=== PATIENT | female | born 1985 | race Caucasian/White ===

== ENCOUNTER → 2024-07-12 | Outpatient (CLI) | payer BC ==
[2024-07-12 10:20] VITALS: BP 143/93; PULSE 114; RESP 16; TEMP 98.2; BMI 49.3
--- NOTE | 2024-07-12 13:30 | P.HPBAR ---
Bariatric H&P - History & Physicial H&P Date: 07/12/24 History & Physicial: Visit/CC: new Patient initial contact: Initial weight: Initial weight in pounds: Height: 5 ft 4.5 in Initial BMI: Last weight: Current weight: 132.449 kg Current weight in pounds: 292.00 Current BMI: 49.3 [place] body weight (based on NIH guidelines): 60.328 kg Excess body weight loss: The patient is a 38 year-old F who presents for Bariatric Assessment. This is a 38-year-old female whose BMI is 50. Patient presents today for bariatric consultation. Patient had been previously scheduled at another center for gastric sleeve surgery. Patient request to have gastric sleeve surgery with myself. Patient has a known history of gallstones. She had ultrasound which shows a 3 cm gallstone. Past Medical History Past Medical History: Hypertension, Skin Disorder Additional Past Medical History / Comment(s): psoriasis and pcos History of Any Multi-Drug Resistant Organisms: None Reported Past Surgical History: No Surgical Hx Reported Past Anesthesia/Blood Transfusion Reactions: No Reported Reaction Smoking Status: Never smoker - Past Family History Father Family Medical History: Coronary Artery Disease (CAD), Hypertension Surgical - Exam Vital Signs Temp Pulse Resp BP 98.2 F 114 H 16 143/93 07/12/24 10:15 07/12/24 10:15 07/12/24 10:15 07/12/24 10:15 - General well developed, well nourished, no distress - Eyes PERRL - ENT normal pinna - Neck no masses - Respiratory normal expansion - Abdomen Abdomen: soft, non tender Bariatric Assessment & Plan Plan: Cholelithiasis. Patient will be scheduled for laparoscopic ostectomy. Morbid obesity, BMI 50. Patient be scheduled for EGD. Bariatric Checklist Checklist: Plan: Checklist: EGD: 1. Hiatal hernia: 2. H. Pylori: HgbA1c: Vitamin D: Smoking: Primary care physician referral: real Psychiatry clearance: Cardiology clearance: Sleep study: Diet journal: VTE risk score: VTE risk level: Rehab needs at discharge:
== END ==
LOC: BARWHC3 09:50 → EDSEX 09:50
PROVIDERS: ATTEND Surgery
CPT/HCPCS: 99202

== ENCOUNTER 2024-07-15 09:03 | Day surgery (SDC) | payer BC ==
[2024-07-15] MEDS: IV FLUID CONTINUATION 1,000 ML IV ONE (09:11)
[2024-07-15] MEDS: LACTATED RINGERS 1,000 ML IV SCH (09:14)
[2024-07-15 09:24] VITALS: TEMP 97.3
[2024-07-15] MEDS ORDERED: LIDOCAINE 1% INJ 10MG/ML (20 ML MDV) ONE (10:25)
[2024-07-15] MEDS ORDERED: PROPOFOL 10 MG/ML 20 ML VIAL IV ONE (10:25)
--- NOTE | 2024-07-15 10:27 | P.GSHP ---
History of Present Illness H&P Date: 07/15/24 Chief Complaint: GERD, morbid obesity this a 38-year-old female presents today for EGD. Patient is underwent workup for sleeve gastrectomy. She is evidence of GERD. Her BMI is 51. Past Medical History Past Medical History: Hypertension, Skin Disorder Additional Past Medical History / Comment(s): psoriasis ( HANDS AND KNEE AREA). and pcos History of Any Multi-Drug Resistant Organisms: None Reported Past Surgical History: No Surgical Hx Reported Past Anesthesia/Blood Transfusion Reactions: No Reported Reaction Additional Past Anesthesia/Blood Transfusion Reaction / Comment(s): NEVER ANESTHESIA Smoking Status: Never smoker - Past Family History Father Family Medical History: Coronary Artery Disease (CAD), Hypertension Medications and Allergies Home Medications Medication Instructions Recorded Confirmed Type ALPRAZolam [Xanax] 1 mg PO BID PRN 07/12/24 07/15/24 History Tirzepatide [Mounjaro] 15 mg SQ WE 07/12/24 07/15/24 History lisinopriL [Zestril] 20 mg PO HS 07/12/24 07/15/24 History Allergies Allergy/AdvReac Type Severity Reaction Status Date / Time No Known Allergies Allergy Verified 07/15/24 09:20 Surgical - Exam Vital Signs Temp Pulse Resp BP Pulse Ox 97.3 F L 96 20 127/88 98 07/15/24 09:22 07/15/24 09:22 07/15/24 09:22 07/15/24 09:22 07/15/24 09:22 - General well developed, well nourished, no distress - Eyes PERRL - ENT normal pinna - Neck no masses - Respiratory normal expansion - Cardiovascular Rhythm: regular - Abdomen Abdomen: soft, non tender Assessment and Plan Assessment: GERD, morbid obesity. We'll performEGD.
--- NOTE | 2024-07-15 10:38 | P.OP ---
Date of Procedure: 07/15/24 Preoperative Diagnosis: GERD Morbid obesity Postoperative Diagnosis: antral gastritis Procedure(s) Performed: EGD Anesthesia: MAC Surgeon: Sammy Mcneal Pathology: other (antrum) Condition: stable Disposition: PACU Description of Procedure: the patient's placed on the endoscopy table in the lateral position. She received IV sedation. The gastro-/oropharynx passed in the esophagus and stomach. Scope was placed through the pylorus. The first and second portion of the duodenum appeared normal. Scope was brought back the antrum this. Mildly inflamed. A biopsies was performed. Scope was unretroflexed and remainder of the stomach appeared normal. The GE junction was at 40 cm the distal esophagus appeared normal. The proximal esophagus. Normal. Scope withdrawn for patient.
[2024-07-15 11:02] VITALS: BP 127/76; PULSE 87; RESP 18
== END 2024-07-15 11:40 | disposition home or self-care (01) ==
LOC: ORWHC2ENDO 09:03
PROVIDERS: ATTEND Surgery
DX: K29.50 Unspecified chronic gastritis without bleeding (principal); K21.9 Gastro-esophageal reflux disease without esophagitis; E66.01 Morbid (severe) obesity due to excess calories; I10 Essential (primary) hypertension; Z68.43 Body mass index [BMI] 50.0-59.9, adult; Z79.899 Other long term (current) drug therapy
CPT/HCPCS: 43239; 81025; 88305

== ENCOUNTER 2024-07-19 07:22 | Day surgery (SDC) | payer BC ==
[2024-07-19 07:54] VITALS: TEMP 97.6
[2024-07-19 08:08] LABS: Glucose,Whole Blood 106 mg/dL (70-110)
[2024-07-19] MEDS: LACTATED RINGERS 1,000 ML IV SCH (08:13)
[2024-07-19] MEDS: DEXAMETHASONE SOD PHOSPHATE 4 MG/ML 1 ML VIAL IV ONE (08:13)
[2024-07-19] MEDS: IV FLUID CONTINUATION 1,000 ML IV ONE ×2 (08:14→10:06)
[2024-07-19] MEDS: ONDANSETRON 4 MG/2 ML VIAL IVP ONE (08:14)
--- NOTE | 2024-07-19 08:24 | P.GSHP ---
History of Present Illness H&P Date: 07/19/24 Chief Complaint: Right upper quadrant pain, cholelithiasis There is a 38-year-old female who presents today for laparoscopic cholecystectomy. Patient has had complaints reported pain. Her recent ultrasound shows evidence of cholelithiasis. Patient is more obese BMI 51. Past Medical History Past Medical History: Hypertension, Skin Disorder Additional Past Medical History / Comment(s): psoriasis ( HANDS AND KNEE AREA). and pcos History of Any Multi-Drug Resistant Organisms: None Reported Past Surgical History: No Surgical Hx Reported Past Anesthesia/Blood Transfusion Reactions: No Reported Reaction Additional Past Anesthesia/Blood Transfusion Reaction / Comment(s): NEVER ANESTHESIA Smoking Status: Never smoker - Past Family History Father Family Medical History: Coronary Artery Disease (CAD), Hypertension Medications and Allergies Home Medications Medication Instructions Recorded Confirmed Type ALPRAZolam [Xanax] 1 mg PO BID PRN 07/12/24 07/15/24 History Tirzepatide [Mounjaro] 15 mg SQ WE 07/12/24 07/15/24 History lisinopriL [Zestril] 20 mg PO HS 07/12/24 07/15/24 History Allergies Allergy/AdvReac Type Severity Reaction Status Date / Time No Known Allergies Allergy Verified 07/15/24 09:20 Surgical - Exam Vital Signs Temp Pulse Resp BP Pulse Ox 97.6 F 105 H 18 123/71 100 07/19/24 07:53 07/19/24 07:53 07/19/24 07:53 07/19/24 07:53 07/19/24 07:53 - General well developed, well nourished, no distress - Eyes PERRL - ENT normal pinna - Neck no masses - Respiratory normal expansion - Cardiovascular Rhythm: regular - Abdomen Abdomen: soft, non tender Assessment and Plan Assessment: Cholelithiasis Morbid obesity Will perform laparoscopic cholecystectomy.
[2024-07-19] MEDS: HEPARIN SODIUM,PORCINE 5,000 UNIT/ML 1 ML VIAL SQ STA (08:38)
[2024-07-19] MEDS ORDERED: PROPOFOL 10 MG/ML 20 ML VIAL IV ONE (08:51)
[2024-07-19] MEDS ORDERED: MIDAZOLAM 2 MG/2 ML VIAL ONE (08:51)
[2024-07-19] MEDS ORDERED: HYDROmorphone (PF) 1 MG/ML ONE (08:51)
[2024-07-19] MEDS ORDERED: ROCURONIUM 10 MG/ML (5 ML VIAL) IV ONE (08:51)
[2024-07-19] MEDS ORDERED: SUCCINYLCHOLINE CHLORIDE 200 MG/10 ML VIAL IV ONE (08:51)
[2024-07-19] MEDS ORDERED: PHENYLEPHRINE 10 MG/ML VIAL ONE (08:51)
[2024-07-19] MEDS ORDERED: NEOSTIGMINE 1 MG/ML 10 ML VIAL ONE (08:51)
[2024-07-19] MEDS ORDERED: fentaNYL (PF) 50 MCG/ML 2 ML AMP ONE (08:51)
[2024-07-19] MEDS ORDERED: LIDOCAINE 1% INJ 10MG/ML (20 ML MDV) ONE (08:51)
[2024-07-19] MEDS: ceFAZolin 3 GM in SODIUM CHLORIDE 0.9% 100 ML IVPB PRN (08:51)
[2024-07-19] MEDS ORDERED: GLYCOPYRROLATE 0.2 MG/ML 2 ML VIAL ONE (08:51)
[2024-07-19] MEDS: LIDOCAINE 1%-EPI 1:100,000 20 ML VIAL SQ ONE (09:23)
--- NOTE | 2024-07-19 09:50 | P.OP ---
Date of Procedure: 07/19/24 Preoperative Diagnosis: Cholelithiasis Postoperative Diagnosis: Cholelithiasis Procedure(s) Performed: Laparoscopic cholecystectomy Anesthesia: FORREST Surgeon: Sammy Mcneal Estimated Blood Loss (ml): 5 Pathology: other (Gallbladder) Condition: stable Disposition: PACU Description of Procedure: The patient was placed on the operating table. The patient received a general endotracheal tube anesthesia. The patients abdomen was prepped and draped in the usual sterile fashion. Through an infraumbilical stab incision, the fascia of the anterior abdominal wall was grasped with a pair of Kochers and then the Veress needle was placed in the peritoneal cavity. Position of the Veress needle was confirmed with positive drop test. The abdomen was then insufflated. After adequate insufflation, the 10 mm trocar was placed in the peritoneal cavity. Following this the laparoscope was placed in the peritoneal cavity. The patient was placed in the head-up, right side up position and then a 5 mm trocar was placed in the right lateral and right subcostal position under direct visualization. A 8 mm trocar was placed in the epigastric position. The gallbladder was grasped in the fundus and infundibulum. Traction on the gallbladder was placed in the lateral and the cephalad positions. The triangle of Calot was visualized.. The cystic duct was bluntly dissected until the union of the cystic duct and common bile duct was seen. A critical view of safety was achieved. The cystic duct was then divided and sealed with the Harmonic scissors. A PDS Endoloop was then placed throughout the cystic duct stump. The cystic artery divided and sealed with the Harmonic scissors. The gallbladder was then removed from the liver bed using Harmonic scissors. The gallbladder was then extracted through the epigastric port site. Operative field was checked for any bleeding spots and Harmonic scissors was used to coagulate the liver bed. The abdomen was irrigated. The trocars were removed. The skin was closed using interrupted 3-0 Vicryl suture. Dermabond dressing were applied. The patient tolerated the procedure well.
[2024-07-19 09:59] VITALS: RESP 16
[2024-07-19] MEDS: HYDROmorphone 0.5 MG/0.5 ML SYRINGE IVP PRN (10:05)
[2024-07-19] MEDS: KETOROLAC 15 MG/ML 1 ML VIAL IM STA (10:59)
[2024-07-19] MEDS: KETOROLAC 15 MG/ML 1 ML VIAL IVP STA (11:12)
[2024-07-19 11:30] VITALS: BP 116/75; PULSE 80
== END 2024-07-19 12:04 | disposition home or self-care (01) ==
LOC: OR 07:22
PROVIDERS: ATTEND Surgery
DX: K80.10 Calculus of gallbladder with chronic cholecystitis without obstruction (principal); E66.01 Morbid (severe) obesity due to excess calories; I10 Essential (primary) hypertension; Z68.43 Body mass index [BMI] 50.0-59.9, adult; Z79.899 Other long term (current) drug therapy
CPT/HCPCS: 81025; 88304

== ENCOUNTER → 2024-07-26 | Outpatient (CLI) | payer BC ==
[2024-07-26 10:56] VITALS: BP 129/90; PULSE 90; RESP 16; TEMP 98.3; BMI 49.6
--- NOTE | 2024-07-26 14:00 | P.HPBAR ---
Bariatric H&P - History & Physicial H&P Date: 07/26/24 History & Physicial: Visit/CC: f/u kevin Patient initial contact: Initial weight: Initial weight in pounds: Height: 5 ft 4.5 in Initial BMI: Last weight: Current weight: 133.356 kg Current weight in pounds: 294.00 Current BMI: 49.6 [place] body weight (based on NIH guidelines): 55.565 kg Excess body weight loss: The patient is a 38 year-old F who presents for Bariatric Assessment. Patient presents today for preoperative. Assessment. Patient underwent recent laparoscopic colostomy. Her BMI is 50. Patient will be scheduled for sleeve gastrectomy in the next few weeks. Patient had a few question of sleeve gastrectomy which were answered in the office today. Her mother was present. Past Medical History Past Medical History: Hypertension, Skin Disorder Additional Past Medical History / Comment(s): psoriasis ( HANDS AND KNEE AREA). and pcos History of Any Multi-Drug Resistant Organisms: None Reported Past Surgical History: Cholecystectomy Past Anesthesia/Blood Transfusion Reactions: No Reported Reaction Additional Past Anesthesia/Blood Transfusion Reaction / Comm: NEVER ANESTHESIA Past Psychological History: Anxiety Smoking Status: Never smoker Past Alcohol Use History: None Reported Past Drug Use History: None Reported - Past Family History Father Family Medical History: Coronary Artery Disease (CAD), Hypertension Surgical - Exam Vital Signs Temp Pulse Resp BP 98.3 F 90 16 129/90 07/26/24 10:48 07/26/24 10:48 07/26/24 10:48 07/26/24 10:48 - General well developed, well nourished, no distress - Eyes PERRL - ENT normal pinna - Neck no masses - Respiratory normal expansion - Cardiovascular Rhythm: regular - Abdomen Abdomen: soft, non tender Bariatric Assessment & Plan Plan: Normal obese. BMI 50. Patient will be scheduled for sleeve gastrectomy. Bariatric Checklist Checklist: Plan: Checklist: EGD: 1. Hiatal hernia: 2. H. Pylori: HgbA1c: Vitamin D: Smoking: Primary care physician referral: real Psychiatry clearance: Cardiology clearance: Sleep study: Diet journal: VTE risk score: VTE risk level: Rehab needs at discharge:
== END ==
LOC: BARWHC3 10:23
PROVIDERS: ATTEND Surgery
CPT/HCPCS: 99211

== ENCOUNTER 2024-08-03 09:19 | Day surgery (SDC) | payer BC ==
[2024-07-29 10:15] VITALS: BMI 52.0
[~2024-08-03 09:19] MED LIST: LIDOCAINE 1% (10MG/ML) FOR IV START INTRADERMA PRN; MIDAZOLAM 2 MG/2 ML VIAL IV PRN; fentaNYL (PF) 50 MCG/ML 2 ML AMP IVP PRN
[2024-08-03] MEDS: IV FLUID CONTINUATION 1,000 ML IV ONE (09:30)
--- NOTE | 2024-08-03 10:02 | P.GSHP ---
History of Present Illness H&P Date: 08/03/24 Chief Complaint: Morbid obesity, BMI 52 This is a 38-year-old female who presents today for sleeve gastrectomy. Patient is aware the risk of surge including gastric injury, staple disruption, bleeding and scarring. Patient has had lifetime problems with obesity. Past Medical History Past Medical History: Hypertension, Skin Disorder Additional Past Medical History / Comment(s): psoriasis ( HANDS AND KNEE AREA). and pcos w/ insulin resistance History of Any Multi-Drug Resistant Organisms: None Reported Past Surgical History: Cholecystectomy Past Anesthesia/Blood Transfusion Reactions: No Reported Reaction Additional Past Anesthesia/Blood Transfusion Reaction / Comment(s): NEVER ANESTHESIA Smoking Status: Never smoker - Past Family History Father Family Medical History: Coronary Artery Disease (CAD), Hypertension Medications and Allergies Home Medications Medication Instructions Recorded Confirmed Type ALPRAZolam [Xanax] 0.5 - 1 mg PO BID PRN 07/12/24 08/03/24 History Tirzepatide [Mounjaro] 15 mg SQ WE 07/12/24 08/03/24 History lisinopriL [Zestril] 20 mg PO HS 07/12/24 08/03/24 History Docusate [Colace] 100 mg PO BID #20 capsule 07/19/24 08/03/24 Rx Ibuprofen [Motrin] 600 mg PO Q6HR PRN #40 tab 07/19/24 08/03/24 Rx Acetaminophen Tab [Tylenol] 650 mg PO Q6H PRN 07/29/24 08/03/24 History Allergies Allergy/AdvReac Type Severity Reaction Status Date / Time No Known Allergies Allergy Verified 08/03/24 09:43 Surgical - Exam - General well developed, well nourished, no distress - Eyes PERRL - ENT normal pinna, normal nares - Neck no masses - Respiratory normal expansion - Cardiovascular Rhythm: regular - Abdomen Abdomen: soft, non tender Assessment and Plan Assessment: More obesity, BMI 52. Will perform laparoscopic sleeve gastrectomy.
[2024-08-03] MEDS: DEXAMETHASONE SOD PHOSPHATE 4 MG/ML 1 ML VIAL IV ONE (10:06)
[2024-08-03] MEDS: ONDANSETRON 4 MG/2 ML VIAL IVP ONE (10:07)
[2024-08-03] MEDS: LACTATED RINGERS 1,000 ML IV SCH (10:07)
[2024-08-03] MEDS: ENOXAPARIN 40 MG/0.4 ML SYRINGE SQ PRN (10:07)
[2024-08-03] MEDS ORDERED: MIDAZOLAM 2 MG/2 ML VIAL ONE (10:18)
[2024-08-03] MEDS ORDERED: ROCURONIUM 10 MG/ML (5 ML VIAL) IV ONE (10:18)
[2024-08-03] MEDS ORDERED: HYDROmorphone (PF) 1 MG/ML ONE (10:18)
[2024-08-03] MEDS ORDERED: SUCCINYLCHOLINE CHLORIDE 200 MG/10 ML VIAL IV ONE (10:18)
[2024-08-03] MEDS ORDERED: LIDOCAINE 1% INJ 10MG/ML (20 ML MDV) ONE (10:18)
[2024-08-03] MEDS ORDERED: PROPOFOL 10 MG/ML 20 ML VIAL IV ONE (10:18)
[2024-08-03] MEDS ORDERED: GLYCOPYRROLATE 0.2 MG/ML 2 ML VIAL ONE (10:18)
[2024-08-03] MEDS ORDERED: KETAMINE HCL IN 0.9 % NACL 50 MG/5 ML SYRINGE ONE (10:18)
[2024-08-03] MEDS ORDERED: diphenhydrAMINE 50 MG/ML 1 ML VIAL ONE (10:18)
[2024-08-03] MEDS ORDERED: NEOSTIGMINE 1 MG/ML 10 ML VIAL ONE (10:18)
[2024-08-03] MEDS ORDERED: fentaNYL (PF) 50 MCG/ML 2 ML AMP ONE (10:18)
[2024-08-03] MEDS: ceFAZolin 3 GM in SODIUM CHLORIDE 0.9% 100 ML IVPB PRN (10:22)
[2024-08-03] MEDS: LIDOCAINE 1%-EPI 1:100,000 20 ML VIAL SQ ONE (10:52)
[2024-08-03] MEDS: LACTATED RINGERS 1,000 ML IV ONE ×2 (11:31→12:53)
[2024-08-03] MEDS ORDERED: HYOSCYAMINE ORAL DROPS 1.875 MG/15 ML BOTTLE PO PRN (11:35)
[2024-08-03] MEDS ORDERED: diphenhydrAMINE 50 MG/ML 1 ML VIAL IVP PRN (11:35)
[2024-08-03] MEDS ORDERED: NALOXONE 0.4 MG/ML 1 ML VIAL IV PRN (11:35)
[2024-08-03] MEDS ORDERED: HYDROcodone/APAP 15 ML SOLUTION PO PRN (11:35)
--- NOTE | 2024-08-03 11:35 | P.OP ---
Date of Procedure: 08/03/24 Preoperative Diagnosis: Morbid obesity, BMI 52 Postoperative Diagnosis: Obesity, BMI 52 Procedure(s) Performed: Laparoscopic sleeve gastrectomy Anesthesia: FORREST Surgeon: Sammy Mcneal Pathology: other (Stomach) Condition: stable Disposition: PACU Description of Procedure: The patient was placed on the operating room table in the supine position. She received general anesthesia and then was placed in dorsal lithotomy position. Her abdomen was prepped and draped in sterile fashion. The skin incision sites were anesthetized 1% local Xylocaine. And then the skin was incised with an 11 blade in the left lateral position. Using a blade less trocar under direct visualization the peritoneal cavity was entered. The abdomen was insufflated and then a 5 mm laparoscope was placed into the peritoneal cavity. A 5 mm trocar was placed in the right epigastric, and right lateral position. A 15 mm trocar was placed in the supra-umbilical position and another 5 mm trocar was placed in the left lateral position. The left lateral lobe of the liver was retracted. The stomach was visualized. The greater curvature of the stomach was then dissected using the Harmonic scissors. The dissection occurred approximately 5 cm from the pylorus to the level of the left paulino. There was no hiatal hernia seen. At this point a 40-Bulgarian bougie dilator was placed the oropharynx and passed into the esophagus and into the stomach by the SUPPORT STAFF. The sleeve gastrectomy was performed by using the powered echelon stapler with a seam guard buttress material. Sequential firings of the stapler were performed. The gastric remnant was then brought out through the 15 mm trocar site. The dilator was withdrawn. And a orogastric tube was replaced into the stomach. The stomach was insufflated with 200 mL of methylene blue normal saline. There was no evidence of extravasation. The abdomen was irrigated there is no bleeding seen. The Alexandro-Chicho device was used to close the 15 mm trocar with 0 Vicryl. Skin was closed with interrupted 3-0 Monocryl sutures once the trochars withdrawn. Dermabond dressing was applied. Patient was sent to recovery in stable condition.
[2024-08-03] MEDS: HYDROmorphone 0.5 MG/0.5 ML SYRINGE IVP PRN (12:10)
[2024-08-03] MEDS: droPERidol 5 MG/2 ML VIAL IVP ONE (12:44)
[2024-08-03] MEDS: ALBUTEROL NEBULIZED 2.5 MG/3 ML INHALATION SCH (16:00)
[2024-08-03] MEDS: DEXAMETHASONE SOD PHOSPHATE 4 MG/ML 1 ML VIAL IVP SCH (16:36)
[2024-08-03] MEDS: ACETAMINOPHEN IV (For NPO) 1,000 MG in EMPTY BAG 1 BAG IVPB ONE (16:36)
[2024-08-03] MEDS: KETOROLAC 15 MG/ML 1 ML VIAL IVP SCH (16:37)
[2024-08-03] MEDS: ONDANSETRON 4 MG/2 ML VIAL IVP PRN (16:53)
[2024-08-03] MEDS: ceFAZolin 3 GM in SODIUM CHLORIDE 0.9% 100 ML IVPB SCH (16:53)
[2024-08-03] MEDS: 0.9% NACL WITH KCL 20 MEQ/L 1,000 ML IV SCH (18:00)
[2024-08-03] MEDS: HYDROmorphone 1 MG/ML 1 ML SYRINGE IVP PRN (18:03)
[2024-08-03] MEDS: SIMETHICONE 80 MG CHEWABLE PO PRN (20:53)
[2024-08-03] MEDS: ENOXAPARIN 40 MG/0.4 ML SYRINGE SQ SCH (23:19)
[2024-08-04] MEDS: PANTOPRAZOLE 40 MG/10 ML VIAL IV SCH (08:30)
[2024-08-04] MEDS: 0.9% NACL WITH KCL 20 MEQ/L 1,000 ML IV SCH (08:31)
[2024-08-04 08:50] LABS: Basophils # (A) 0.02 X 10*3/uL (0.00-0.10); Basophils % (A) 0.1 %; Eosinophils # (A) 0 X 10*3/uL (0.04-0.35); Eosinophils % (A) 0 %; HCT 34.5 % (37.2-46.3); HGB 11.3 g/dL (12.0-15.0); Lymphocytes # (A) 0.92 X 10*3/uL (0.90-5.00); Lymphocytes % (A) 6.4 %; MCH 28.5 pg (27.0-32.0); MCHC 32.8 g/dL (32.0-37.0); MCV 87.1 FL (80.0-97.0); Mean Platelet Volume 9.5 FL (9.5-12.2); Monocytes # (A) 0.17 X 10*3/uL (0.20-1.00); Monocytes % (A) 1.2 %; NRBC Per 100 WBC 0 X 10*3/uL (0.00-0.01); Neutrophils # (A) 13.23 X 10*3/uL (1.80-7.70); Platelet Count 406 X 10*3/uL (140-440); RBC 3.96 X 10*6/uL (4.10-5.20); RDW 13.5 % (11.5-14.5); WBC 14.39 X 10*3/uL (4.50-10.00)
[2024-08-04 09:03] LABS: Blood Urea Nitrogen 12.6 mg/dL (9.0-27.0); Calcium 8.5 mg/dL (8.7-10.3); Carbon Dioxide 21.9 mmol/L (21.6-31.8); Chloride 104 mmol/L (96-109); Magnesium 1.9 mg/dL (1.5-2.4); Phosphorus 2.7 mg/dL (2.4-5.1); Potassium 5.1 mmol/L (3.5-5.5); Sodium 136 mmol/L (135-145)
[2024-08-04] MEDS: HYDROcodone/APAP 15 ML SOLUTION PO PRN (11:32)
--- NOTE | 2024-08-04 13:23 | P.DS ---
Providers Expected date of discharge: 08/04/24 Attending physician: Sammy Mcneal Consults: 08/03/24 11:35 Consult Physician Routine Consulting Provider: Micky Mccormick Jr Consult Reason/Comments: Medical management Do you want consulting provider notified?: Yes Primary care physician: Micky Mccormick Hospital Course: Discharge diagnosis Morbid obesity Leukocytosis likely reactive from surgery Hospital course This is a 38-year-old female with history of morbid obesity. She is status post laparoscopic sleeve gastrectomy. She tolerated surgery well. Her pain is controlled. She is tolerating diet. She has been up and ambulating. She is having flatus. She is afebrile. She is stable for discharge. Please refer to chart for any further details. Physician Practicing Urologist note has been reviewed by physician. Signing provider agrees with the documented findings, assessment, and plan of care. Patient Condition at Discharge: Stable Plan - Discharge Summary Discharge Rx Participant: No New Discharge Prescriptions: New HYDROcodone/APAP 5-325MG [[place] 5-325] 1 tab PO Q6HR PRN 2 Days #5 tab PRN Reason: Pain bisacodyL [Dulcolax] 5 mg PO DAILY PRN #10 tab PRN Reason: Constipation Simethicone 40 mg/0.6 ml Drops [Mylicon Drops] 40 mg PO PCHS PRN #30 ml PRN Reason: Gas Omeprazole [PriLOSEC] 40 mg PO DAILY #30 cap Ondansetron Odt [Zofran Odt] 4 mg PO Q8HR PRN #9 tab PRN Reason: Nausea Docusate [Colace] 100 mg PO BID #30 capsule Continue ALPRAZolam [Xanax] 0.5 - 1 mg PO BID PRN PRN Reason: Anxiety lisinopriL [Zestril] 20 mg PO HS Acetaminophen Tab [Tylenol] 650 mg PO Q6H PRN PRN Reason: Pain Discontinued Tirzepatide [Mounjaro] 15 mg SQ WE Docusate [Colace] 100 mg PO BID #20 capsule Ibuprofen [Motrin] 600 mg PO Q6HR PRN #40 tab PRN Reason: Pain Discharge Medication List ALPRAZolam [Xanax] 0.5 - 1 mg PO BID PRN 07/12/24 [History] lisinopriL [Zestril] 20 mg PO HS 07/12/24 [History] Acetaminophen Tab [Tylenol] 650 mg PO Q6H PRN 07/29/24 [History] Docusate [Colace] 100 mg PO BID #30 capsule 08/04/24 [Rx] HYDROcodone/APAP 5-325MG [[place] 5-325] 1 tab PO Q6HR PRN 2 Days #5 tab 08/04/24 [Rx] Omeprazole [PriLOSEC] 40 mg PO DAILY #30 cap 08/04/24 [Rx] Ondansetron Odt [Zofran Odt] 4 mg PO Q8HR PRN #9 tab 08/04/24 [Rx] Simethicone 40 mg/0.6 ml Drops [Mylicon Drops] 40 mg PO PCHS PRN #30 ml 08/04/24 [Rx] bisacodyL [Dulcolax] 5 mg PO DAILY PRN #10 tab 08/04/24 [Rx] [facility] Activity/Diet/Wound Care/Special Instructions: No driving while taking [place] No lifting over 10 pounds You may shower. No soaking or tub baths for 2 weeks Very light activity until you are reevaluated at your follow up appointment with your surgeon No straws or carbonated beverages No ibuprofen or NSAID products after sleeve gastrectomy Discharge Disposition: HOME SELF-CARE
[2024-08-04 14:13] VITALS: BP 107/71; PULSE 92; RESP 18; TEMP 98
--- NOTE | 2024-08-04 14:52 | P.CONS ---
History of Present Illness - Reason for Consult Consult date: 08/11/24 Medical management Requesting physician: Sammy Mcneal - Chief Complaint Morbid obesity, status post laparoscopic sleeve gastrectomy - History of Present Illness 38-year-old [place] female status post laparoscopic sleeve gastrectomy secondary to morbid obesity, BMI 52. Tolerated procedure well. Pain controlled. Tolerating diet, denies nausea, vomiting or diarrhea. passing flatus. Reports she has been ambulating in the hallway, tolerating exertion well. Denies chest pain, palpitations or shortness of breath. Continue O2 sats in the 90s on room air. Afebrile, WBC 14.39. Renal function stable. Eager for discharge. Review of Systems Constitutional: Denied any fatigue denied any fever. Cardio vascular: denied any chest pain, palpitations Gastrointestinal denied any nausea vomiting Pulmonary: Denied any shortness of breath cough Neurologic denied any new focal deficits All inpatient medications were reviewed and appropriate changes in these medications as dictated in the interval history and assessment and plan. Past Medical History Past Medical History: Hypertension, Skin Disorder Additional Past Medical History / Comment(s): psoriasis ( HANDS AND KNEE AREA). and pcos w/ insulin resistance History of Any Multi-Drug Resistant Organisms: None Reported Past Surgical History: Bariatric Surgery, Cholecystectomy Additional Past Surgical History / Comment(s): Sleeve gastrectomy 08-04-24 Past Anesthesia/Blood Transfusion Reactions: No Reported Reaction Additional Past Anesthesia/Blood Transfusion Reaction / Comm: NEVER ANESTHESIA Past Psychological History: Anxiety Smoking Status: Never smoker Past Alcohol Use History: None Reported Past Drug Use History: None Reported - Past Family History Father Family Medical History: Coronary Artery Disease (CAD), Hypertension Medications and Allergies Home Medications Medication Instructions Recorded Confirmed Type ALPRAZolam [Xanax] 0.5 - 1 mg PO BID PRN 07/12/24 08/03/24 History lisinopriL [Zestril] 20 mg PO HS 07/12/24 08/03/24 History Acetaminophen Tab [Tylenol] 650 mg PO Q6H PRN 07/29/24 08/03/24 History Docusate [Colace] 100 mg PO BID #30 capsule 08/04/24 Rx HYDROcodone/APAP 5-325MG [[place] 1 tab PO Q6HR PRN 2 Days #5 tab 08/04/24 Rx 5-325] Omeprazole [PriLOSEC] 40 mg PO DAILY #30 cap 08/04/24 Rx Ondansetron Odt [Zofran Odt] 4 mg PO Q8HR PRN #9 tab 08/04/24 Rx Simethicone 40 mg/0.6 ml Drops 40 mg PO PCHS PRN #30 ml 08/04/24 Rx [Mylicon Drops] bisacodyL [Dulcolax] 5 mg PO DAILY PRN #10 tab 08/04/24 Rx Allergies Allergy/AdvReac Type Severity Reaction Status Date / Time No Known Allergies Allergy Verified 08/03/24 09:43 Physical Exam Vitals: Vital Signs Temp Pulse Pulse Pulse Resp BP BP 08/04/24 11:37 82 08/04/24 11:27 80 08/04/24 08:07 84 08/04/24 08:00 110 H 16 08/04/24 07:56 85 08/04/24 07:09 98.3 F 66 17 126/83 08/04/24 00:46 98.2 F 110 H 16 101/67 08/03/24 21:12 80 18 08/03/24 21:05 80 18 08/03/24 19:37 97.7 F 100 16 110/72 08/03/24 16:13 88 08/03/24 16:00 88 08/03/24 15:23 97.7 F 70 19 114/75 08/03/24 14:16 88 16 122/58 Pulse Ox 08/04/24 11:37 08/04/24 11:27 08/04/24 08:07 08/04/24 08:00 08/04/24 07:56 94 L 08/04/24 07:09 93 L 08/04/24 00:46 94 L 08/03/24 21:12 08/03/24 21:05 08/03/24 19:37 98 08/03/24 16:13 08/03/24 16:00 08/03/24 15:23 93 L 08/03/24 14:16 96 Intake and Output 08/03/24 08/04/24 08/04/24 22:59 06:59 14:59 Other: # Voids 1 6 3 Weight 133.2 kg 133.2 kg PHYSICAL EXAM: VITAL SIGNS: [Reviewed] GENERAL: Alert and oriented x 3, sitting up in bed, no acute distress. HEENT: Normocephalic, atraumatic conjunctivae normal. eyes normal. MMM. NECK: Supple, no JVD. CARDIOVASCULAR: S1, S2 regular. No murmur RESPIRATION: Unlabored, equal air entry, clear to auscultation with bilateral bases diminished. ABDOMEN: Soft, status post surgery,no guarding. Positive bowel sounds. LEGS: No edema. no swelling NERVOUS SYSTEM: Cranial N 2-12 grossly normal.No focal deficits. Strength and sensation grossly intact.. Skin: Warm and dry, no rash noted. Results CBC & Chem 7: 08/04/24 03:15 08/04/24 03:15 Labs: Abnormal Lab Results - Last 24 Hours (Table) 08/04/24 08/04/24 Range/Units 03:15 03:15 WBC 14.39 H (4.50-10.00) X 10*3/uL RBC 3.96 L (4.10-5.20) X 10*6/uL Hgb 11.3 L (12.0-15.0) g/dL Hct 34.5 L (37.2-46.3) % Immature Gran # 0.05 H (0.00-0.04) X 10*3/uL Neutrophils # 13.23 H (1.80-7.70) X 10*3/uL Monocytes # 0.17 L (0.20-1.00) X 10*3/uL Eosinophils # 0 L (0.04-0.35) X 10*3/uL Calcium 8.5 L (8.7-10.3) mg/dL Assessment and Plan Assessment: Status post laparoscopic sleeve gastrectomy secondary to morbid obesity, BMI 52 Leukocytosis, suspect reactive, secondary to the above Plan: Continue on current medication regimen ,monitoring and symptomatic treatment. Pain management/diet/discharge planning in progress as per general surgery. Patient has been advised to continue using her incentive spirometer at home as previously instructed.Increase ambulation as tolerated. Follow-up with PCP in 1 week. The impression and plan of care has been dictated as directed. : I performed a history and examination of this patient, discussed the same with the dictator. I agree with the dictator's note ,documented as a scribe. Any additional findings or plans will be noted.
[2024-08-06 11:46] LABS: Glucose,Whole Blood 113 mg/dL (70-110)
== END 2024-08-04 14:33 | disposition home or self-care (01) ==
LOC: OR 09:19 → 4SSUR 11:39 → EDSTATUS 12:05 → OR 08-04 14:33
PROVIDERS: ATTEND Surgery
DX: E66.01 Morbid (severe) obesity due to excess calories
CPT/HCPCS: 80051; 81025; 82310; 82565; 83735; 84100; 84520; 85025; 88307; 94640

== ENCOUNTER → 2024-08-06 | Outpatient (CLI) | payer BC ==
[~2024-08-06] MED LIST changes: -LIDOCAINE 1% (10MG/ML) FOR IV START INTRADERMA PRN; -MIDAZOLAM 2 MG/2 ML VIAL IV PRN; +SODIUM CHLORIDE 0.9% 500 ML 500 ML in EMPTY BAG 1 BAG IV PRN; -fentaNYL (PF) 50 MCG/ML 2 ML AMP IVP PRN
[2024-08-06 08:16] VITALS: BP 124/82; PULSE 87; RESP 16; TEMP 98.4
[2024-08-06] MEDS: SODIUM CHLORIDE 0.9% 2,000 ML IV NR (08:20)
== END ==
LOC: PROCWHC3 08:02
PROVIDERS: ATTEND Surgery
DX: E86.0 Dehydration (principal)
CPT/HCPCS: 96360; 96361

== ENCOUNTER → 2024-08-06 | Outpatient (CLI) | payer BC ==
[2024-08-06 08:41] VITALS: BP 124/78; PULSE 87; TEMP 98.2; BMI 49.3
== END ==
LOC: BARWHC3 08:10
PROVIDERS: ATTEND Surgery
DX: E66.01 Morbid (severe) obesity due to excess calories (principal); I10 Essential (primary) hypertension; R32 Unspecified urinary incontinence; Z68.42 Body mass index [BMI] 45.0-49.9, adult; Z79.899 Other long term (current) drug therapy
CPT/HCPCS: 99211

== ENCOUNTER → 2024-08-09 | Outpatient (CLI) | payer BC ==
[2024-08-09 10:06] VITALS: BP 147/89; PULSE 75; RESP 16; TEMP 98.3; BMI 48.2
--- NOTE | 2024-08-09 11:56 | P.HPBAR ---
Bariatric H&P - History & Physicial H&P Date: 08/09/24 History & Physicial: Visit/CC: f/u sleeve Patient initial contact: Initial weight: Initial weight in pounds: Height: 5 ft 4.5 in Initial BMI: Last weight: Current weight: 129.274 kg Current weight in pounds: 285.00 Current BMI: 48.2 [place] body weight (based on NIH guidelines): 55.565 kg Excess body weight loss: The patient is a 38 year-old F who presents for Bariatric Assessment. Patient presents for bariatric follow-up. She is underwent gastric sleeve procedure approxi-10 days ago. Patient is doing well. Past Medical History Past Medical History: Hypertension, Skin Disorder Additional Past Medical History / Comment(s): psoriasis ( HANDS AND KNEE AREA). and pcos w/ insulin resistance History of Any Multi-Drug Resistant Organisms: None Reported Past Surgical History: Bariatric Surgery, Cholecystectomy Additional Past Surgical History / Comment(s): Sleeve gastrectomy 08-03-24 Past Anesthesia/Blood Transfusion Reactions: No Reported Reaction Additional Past Anesthesia/Blood Transfusion Reaction / Comm: NEVER ANESTHESIA Past Psychological History: Anxiety Smoking Status: Never smoker Past Alcohol Use History: None Reported Past Drug Use History: None Reported - Past Family History Father Family Medical History: Coronary Artery Disease (CAD), Hypertension Surgical - Exam Vital Signs Temp Pulse Resp BP 98.3 F 75 16 147/89 08/09/24 09:59 08/09/24 09:59 08/09/24 09:59 08/09/24 09:59 - General well developed, well nourished, no distress - Eyes PERRL - ENT normal pinna - Neck no masses - Abdomen Abdomen: soft, non tender Bariatric Assessment & Plan Plan: Status post sleeve gastrectomy patient doing well. She will follow-up in 2 weeks. Bariatric Checklist Checklist: Plan: Checklist: EGD: 1. Hiatal hernia: 2. H. Pylori: HgbA1c: Vitamin D: Smoking: Primary care physician referral: real Psychiatry clearance: Cardiology clearance: Sleep study: Diet journal: VTE risk score: VTE risk level: Rehab needs at discharge:
== END | disposition home or self-care (01) ==
LOC: BARWHC3 09:29
PROVIDERS: ATTEND Surgery
DX: E66.01 Morbid (severe) obesity due to excess calories
CPT/HCPCS: 97802; 99211

== ENCOUNTER → 2024-08-23 | Outpatient (CLI) | payer BC ==
[2024-08-23 10:12] VITALS: BMI 46.5
[2024-08-23 11:18] VITALS: BP 122/88; PULSE 91; RESP 16; TEMP 98
--- NOTE | 2024-08-23 17:22 | P.HPBAR ---
Bariatric H&P - History & Physicial H&P Date: 08/23/24 History & Physicial: Visit/CC: f/u Patient initial contact: Initial weight: Initial weight in pounds: Height: 5 ft 4.5 in Initial BMI: Last weight: Current weight: 124.738 kg Current weight in pounds: 275.00 Current BMI: 46.5 [place] body weight (based on NIH guidelines): 55.565 kg Excess body weight loss: The patient is a 38 year-old F who presents for Bariatric Assessment. Patient presents today for bariatric follow-up. Patient has had sleeve gastrectomy. She is doing quite well. She has had minimal GERD. Past Medical History Past Medical History: Hypertension, Skin Disorder Additional Past Medical History / Comment(s): psoriasis ( HANDS AND KNEE AREA). and pcos w/ insulin resistance History of Any Multi-Drug Resistant Organisms: None Reported Past Surgical History: Bariatric Surgery, Cholecystectomy Additional Past Surgical History / Comment(s): Sleeve gastrectomy 08-03-24 Past Anesthesia/Blood Transfusion Reactions: No Reported Reaction Additional Past Anesthesia/Blood Transfusion Reaction / Comm: NEVER ANESTHESIA Smoking Status: Never smoker - Past Family History Father Family Medical History: Coronary Artery Disease (CAD), Hypertension Surgical - Exam Vital Signs Temp Pulse Resp BP 98.0 F 91 16 122/88 08/23/24 10:04 08/23/24 10:04 08/23/24 10:04 08/23/24 10:04 - General well developed, well nourished, no distress - Eyes PERRL - ENT normal pinna - Neck no masses - Respiratory normal expansion - Cardiovascular Rhythm: regular - Abdomen Abdomen: soft, non tender Bariatric Assessment & Plan Plan: Patient doing well. She will follow-up in 4 weeks. Her gerd is minimal and will observe. Bariatric Checklist Checklist: Plan: Checklist: EGD: 1. Hiatal hernia: 2. H. Pylori: HgbA1c: Vitamin D: Smoking: Primary care physician referral: real Psychiatry clearance: Cardiology clearance: Sleep study: Diet journal: VTE risk score: VTE risk level: Rehab needs at discharge:
== END ==
LOC: BARWHC3 09:29
PROVIDERS: ATTEND Surgery
CPT/HCPCS: 97803; 99211

== ENCOUNTER → 2024-09-03 | Outpatient (CLI) | payer BC ==
[2024-09-03 15:00] LABS: HCT 39.6 % (37.2-46.3); HGB 12.4 g/dL (12.0-15.0); MCH 27.3 pg (27.0-32.0); MCHC 31.3 g/dL (32.0-37.0); NRBC Per 100 WBC 0 X 10*3/uL (0.00-0.01); Platelet Count 346 X 10*3/uL (140-440); RBC 4.55 X 10*6/uL (4.10-5.20); RDW 13.9 % (11.5-14.5)
[2024-09-03 16:38] LABS: % Iron Saturation 13.89 (12.00-45.00); ALT 33 U/L (8-44); AST 28 U/L (13-35); Albumin 3.8 g/dL (3.8-4.9); Albumin/Globulin Ratio 1.27 Ratio (1.60-3.17); Alkaline Phosphatase 63 U/L (41-126); BUN/Creat Ratio 11.67 Ratio (12.00-20.00); Calcium 8.9 mg/dL (8.7-10.3); Carbon Dioxide 24.5 mmol/L (21.6-31.8); Chloride 107 mmol/L (96-109); Glucose 99 mg/dL (70-110); Iron 40 UG/DL (50-170); Magnesium 1.8 mg/dL (1.5-2.4); Potassium 4.2 mmol/L (3.5-5.5); Sodium 143 mmol/L (135-145); Total Bilirubin 0.3 mg/dL (0.3-1.2); Total Iron Binding Capacity 288 UG/DL (228-460); Total Protein 6.8 g/dL (6.2-8.2)
[2024-09-06 12:20] LABS: Zinc, Serum 63 ug/dL (60-130)
== END | disposition home or self-care (01) ==
LOC: LABWHC1 10:41
PROVIDERS: ATTEND Surgery
DX: D50.8 Other iron deficiency anemias (principal); E66.01 Morbid (severe) obesity due to excess calories; E55.9 Vitamin D deficiency, unspecified; T56.894A Toxic effect of other metals, undetermined, initial encounter; K90.9 Intestinal malabsorption, unspecified
CPT/HCPCS: 36415; 80053; 82306; 82607; 82728; 82746; 83540; 83550; 83735; 84255; 84425; 84443; 84590; 84630; 85027

== ENCOUNTER → 2024-09-03 | Outpatient (CLI) | payer BC ==
[2024-09-03 09:25] VITALS: BP 131/84; PULSE 81; RESP 16; TEMP 97.8
[2024-09-03] MEDS: SODIUM CHLORIDE 0.9% 1,000 ML IV NR (09:26)
== END ==
LOC: PROCWHC3 09:12
PROVIDERS: ATTEND Surgery
DX: E86.0 Dehydration (principal)
CPT/HCPCS: 96360; 96365

== ENCOUNTER → 2025-03-21 | Outpatient (CLI) | payer BC ==
[2025-03-21 09:45] VITALS: BP 148/85; PULSE 76; RESP 16; TEMP 98.2
--- NOTE | 2025-03-21 10:30 | P.HPBAR ---
Bariatric H&P - History & Physicial H&P Date: 03/21/25 History & Physicial: Visit/CC: f/u sleeve Patient initial contact: Initial weight: Initial weight in pounds: Height: 5 ft 4.5 in Initial BMI: Last weight: Current weight: 102.058 kg Current weight in pounds: Current BMI: [place] body weight (based on NIH guidelines): Excess body weight loss: The patient is a 39 year-old F who presents for Bariatric Assessment. Patient presents today for bariatric follow-up. She has lost approximately 50 pound since her last visit. She notes being seen in 4 months. She has minimal complaints of gerd. Past Medical History Past Medical History: Hypertension, Skin Disorder Additional Past Medical History / Comment(s): psoriasis ( HANDS AND KNEE AREA). and pcos w/ insulin resistance History of Any Multi-Drug Resistant Organisms: None Reported Past Surgical History: Bariatric Surgery, Cholecystectomy Additional Past Surgical History / Comment(s): Sleeve gastrectomy 08-03-24 Past Anesthesia/Blood Transfusion Reactions: No Reported Reaction Additional Past Anesthesia/Blood Transfusion Reaction / Comm: NEVER ANESTHESIA Past Psychological History: Anxiety Smoking Status: Never smoker Past Alcohol Use History: None Reported Past Drug Use History: None Reported - Past Family History Father Family Medical History: Coronary Artery Disease (CAD), Hypertension Surgical - Exam Vital Signs Temp Pulse Resp BP 98.2 F 76 16 148/85 03/21/25 09:37 03/21/25 09:37 03/21/25 09:37 03/21/25 09:37 - General well developed, well nourished, no distress - Eyes PERRL - ENT normal pinna - Neck no masses - Respiratory normal expansion - Cardiovascular Rhythm: regular - Abdomen Abdomen: soft, non tender Bariatric Assessment & Plan Plan: Resolving morbid obesity. Patient is doing well. He is gerd is minimal we observe. Follow-up in 1 month. Bariatric Checklist Checklist: Plan: Checklist: EGD: 1. Hiatal hernia: 2. H. Pylori: HgbA1c: Vitamin D: Smoking: Primary care physician referral: DR. Dawkins Psychiatry clearance: Cardiology clearance: Sleep study: Diet journal: VTE risk score: VTE risk level: Rehab needs at discharge:
[2025-03-21 16:54] LABS: HCT 42.1 % (37.2-46.3); HGB 13.9 g/dL (12.0-15.0); MCV 87.9 FL (80.0-97.0); Mean Platelet Volume 10.9 FL (9.5-12.2); NRBC Per 100 WBC 0 X 10*3/uL (0.00-0.01); Platelet Count 337 X 10*3/uL (140-440); RBC 4.79 X 10*6/uL (4.10-5.20); RDW 13.2 % (11.5-14.5); WBC 7.86 X 10*3/uL (4.50-10.00)
[2025-03-21 17:12] LABS: % Iron Saturation 17.65 (12.00-45.00); ALT 28 U/L (8-44); AST 26 U/L (13-35); Albumin 4.2 g/dL (3.8-4.9); Alkaline Phosphatase 85 U/L (41-126); BUN/Creat Ratio 10.44 Ratio (12.00-20.00); Blood Urea Nitrogen 9.4 mg/dL (9.0-27.0); Calcium 9.7 mg/dL (8.7-10.3); Carbon Dioxide 24.3 mmol/L (21.6-31.8); Chloride 106 mmol/L (96-109); Globulin 2.8 g/dL (1.6-3.3); Glucose 100 mg/dL (70-110); Iron 60 UG/DL (50-170); Magnesium 1.8 mg/dL (1.5-2.4); Potassium 4.6 mmol/L (3.5-5.5); Sodium 143 mmol/L (135-145); Total Bilirubin 0.5 mg/dL (0.3-1.2); Total Iron Binding Capacity 340 UG/DL (228-460)
[2025-03-22 12:34] LABS: Zinc, Serum 78 ug/dL (60-130)
[2025-03-23 06:06] LABS: Vitamin A 36 ug/dL (38-106)
[2025-03-23 06:23] LABS: Vit B1(Thiamine) 42 ug/L (38-122)
== END ==
LOC: BARWHC3 09:25
PROVIDERS: ATTEND Surgery
DX: E66.01 Morbid (severe) obesity due to excess calories (principal); Z68.38 Body mass index [BMI] 38.0-38.9, adult
CPT/HCPCS: 80053; 82306; 82607; 82728; 82746; 83540; 83550; 83735; 84255; 84425; 84443; 84590; 84630; 85027; 99211

== ENCOUNTER → 2025-04-18 | Outpatient (CLI) | payer BC ==
[2025-04-18 09:20] VITALS: BMI 37.1
[2025-04-18 10:16] VITALS: BP 134/92; PULSE 90; RESP 16; TEMP 97.6
== END ==
LOC: BARWHC3 08:58
PROVIDERS: ATTEND Surgery
DX: E66.01 Morbid (severe) obesity due to excess calories (principal); Z68.37 Body mass index [BMI] 37.0-37.9, adult
CPT/HCPCS: 99211